=== PATIENT | male | born 2000 | race African-American/Black ===

== ENCOUNTER 2024-09-06 15:31 | Emergency (ER) | payer BC, OTHER ==
[2024-09-06 15:48] VITALS: BP 130/67; PULSE 81; RESP 16; TEMP 98.7; BMI 34.4
[2024-09-06] MEDS: LIDOCAINE HCL 2% (50ML VIAL) SQ ONE (20:01)
[2024-09-06] MEDS ORDERED: CEPHALEXIN MONOHYDRATE 500 MG CAPSULE (UD) ONE (21:07)
[2024-09-06] MEDS: CEPHALEXIN MONOHYDRATE 500 MG CAPSULE (UD) PO ONE (21:09)
[2024-09-06] MEDS ORDERED: BACITRACIN ZINC 15 GM TUBE TOPICAL OINTMENT ONE (21:20)
[2024-09-06] MEDS: BACITRACIN ZINC 15 GM TUBE TOPICAL OINTMENT TP ONE (21:26)
== END 2024-09-06 21:26 | disposition home or self-care (01) ==
LOC: JERFT 15:31
PROC: 0HQKXZZ Repair Right Lower Leg Skin, External Approach (ICD-10-PCS; principal; 2024-09-06)
DX: S91.311A Laceration without foreign body, right foot, initial encounter (principal); W20.8XXA Other cause of strike by thrown, projected or falling object, initial encounter
CPT/HCPCS: 73630-TC-LT; 99283-25

== ENCOUNTER 2024-09-16 20:18 | Emergency (ER) | payer BC, OTHER ==
[2024-09-16 20:26] VITALS: BP 120/68; PULSE 79; RESP 18; TEMP 98; BMI 34.4
== END 2024-09-16 20:53 | disposition home or self-care (01) ==
LOC: JERFT 20:18
DX: Z48.02 Encounter for removal of sutures (principal)
CPT/HCPCS: 99281-25